=== PATIENT | female | born 1945 | race Caucasian/White ===

== ENCOUNTER 2017-12-29 11:11 | Inpatient (IN) | payer MEDICARE, BC ==
[~2017-12-29] VITALS: Ht 170.2 cm; Wt 83.0 kg
[2017-12-29 12:03] LABS: BASOPHILS ABSOLUTE AUTO 0.02 K/mm3 (0.00-0.23); BASOPHILS PERCENT AUTO 0 % (0-2); EOSINOPHILS ABSOLUTE AUTO 0.03 K/mm3 (0.00-0.68); EOSINOPHILS PERCENT AUTO 0 % (0-6); Hematocrit 39.8 % (33.0-51.0); Hemoglobin 13.4 g/dL (11.5-16.0); IMMATURE GRAN PERCENT AUTO 1 % (0-1); LYMPHOCYTES PERCENT AUTO 3 % (21-46); MONOCYTES ABSOLUTE AUTO 0.45 K/mm3 (0.16-1.47); MONOCYTES PERCENT AUTO 3 % (4-13); Mean Corpuscular HGB 30.9 pg (26.0-34.0); Mean Corpuscular HGB Conc 33.7 g/dL (31.5-36.5); Mean Corpuscular Volume 92 fL (80-100); Mean Platelet Volume 10.3 fL (9.1-12.4); NEUTROPHILS ABSOLUTE AUTO 17.16 K/mm3 (1.96-9.15); NEUTROPHILS PERCENT AUTO 94 % (41-73); Platelet Count 285 K/mm3 (150-400); RDW Coefficient Variation 11.9 % (11.7-14.2); RDW Standard Deviation 40.2 fL (35.1-46.3); Red Blood Cell Count 4.34 M/mm3 (3.80-5.20); White Blood Cell Count 18.26 K/mm3 (4.00-11.30)
[2017-12-29] MEDS ORDERED: LEVSOD100 PO (12:05)
[2017-12-29] MEDS ORDERED: POTCHL10ER PO (12:06)
[2017-12-29] MEDS ORDERED: MICROZIDE12.5 MG (12:06)
[2017-12-29] MEDS ORDERED: METO100ER PO (12:06)
[2017-12-29] MEDS ORDERED: ELIQUIS5 MG PO (12:07)
[2017-12-29 12:18] LABS: Anion Gap 11 mmol/L (6-16); Blood Urea Nitrogen 15 mg/dL (8-24); CO2, Blood 25 mmol/L (21-32); Calcium, Blood 9.2 mg/dL (8.5-10.1); Chloride, Blood 100 mmol/L (98-108); Creatinine, Blood 0.88 mg/dL (0.40-1.00); Glomerular Filtration Rate >60 (60-); Glucose, Blood 215 mg/dL (70-99); Potassium, Blood 3.7 mmol/L (3.5-5.5); Sodium, Blood 136 mmol/L (136-145)
[2017-12-30 04:58] LABS: Hematocrit 39.6 % (33.0-51.0); Mean Corpuscular HGB 31.1 pg (26.0-34.0); Mean Corpuscular HGB Conc 32.8 g/dL (31.5-36.5); Mean Platelet Volume 10.2 fL (9.1-12.4); Platelet Count 260 K/mm3 (150-400); RDW Coefficient Variation 11.9 % (11.7-14.2); RDW Standard Deviation 41.6 fL (35.1-46.3); Red Blood Cell Count 4.18 M/mm3 (3.80-5.20); White Blood Cell Count 16.49 K/mm3 (4.00-11.30)
[2017-12-30 05:01] LABS: Mean Corpuscular Volume 95 fL (80-100)
[2017-12-30 05:27] LABS: Anion Gap 9 mmol/L (6-16); Blood Urea Nitrogen 15 mg/dL (8-24); Bun/Creatinine Ratio 20.1 (12.0-20.0); CO2, Blood 28 mmol/L (21-32); Calcium, Blood 9.2 mg/dL (8.5-10.1); Chloride, Blood 100 mmol/L (98-108); Creatinine, Blood 0.75 mg/dL (0.40-1.00); Glomerular Filtration Rate >60 (60-); Glucose, Blood 208 mg/dL (70-99); Potassium, Blood 4.6 mmol/L (3.5-5.5); Sodium, Blood 137 mmol/L (136-145)
[2017-12-31 05:38] LABS: BASOPHILS ABSOLUTE AUTO 0.01 K/mm3 (0.00-0.23); BASOPHILS PERCENT AUTO 0 % (0-2); EOSINOPHILS ABSOLUTE AUTO 0.01 K/mm3 (0.00-0.68); EOSINOPHILS PERCENT AUTO 0 % (0-6); Hematocrit 36.8 % (33.0-51.0); IMMATURE GRAN ABSOLUTE AUTO 0.17 K/mm3 (0.00-0.10); IMMATURE GRAN PERCENT AUTO 1 % (0-1); LYMPHOCYTES ABSOLUTE AUTO 1.01 K/mm3 (0.84-5.20); LYMPHOCYTES PERCENT AUTO 6 % (21-46); MONOCYTES ABSOLUTE AUTO 0.55 K/mm3 (0.16-1.47); MONOCYTES PERCENT AUTO 3 % (4-13); Mean Corpuscular HGB 30.6 pg (26.0-34.0); Mean Corpuscular HGB Conc 32.6 g/dL (31.5-36.5); Mean Corpuscular Volume 94 fL (80-100); Mean Platelet Volume 10.6 fL (9.1-12.4); NEUTROPHILS ABSOLUTE AUTO 16.69 K/mm3 (1.96-9.15); NEUTROPHILS PERCENT AUTO 90 % (41-73); Platelet Count 269 K/mm3 (150-400); RDW Coefficient Variation 11.9 % (11.7-14.2); RDW Standard Deviation 41.1 fL (35.1-46.3); Red Blood Cell Count 3.92 M/mm3 (3.80-5.20); White Blood Cell Count 18.44 K/mm3 (4.00-11.30)
[2017-12-31] MEDS ORDERED: SACC250C (11:37)
[2017-12-31] MEDS ORDERED: Percocet 5-3251 EACH PO (11:37)
[2017-12-31] MEDS ORDERED: AMOCLA500 PO (11:38)
[2017-12-31] MEDS ORDERED: PRED10 PO (11:41)
== END 2017-12-31 12:54 | disposition home or self-care (01) | DRG 872 ==
LOC: ER 11:11 → MEDS 14:09
PROVIDERS: Emergency Medicine; Hospitalist
DX: A41.9 Sepsis, unspecified organism (principal); J36 Peritonsillar abscess; E03.9 Hypothyroidism, unspecified; I48.91 Unspecified atrial fibrillation; I10 Essential (primary) hypertension; L53.9 Erythematous condition, unspecified
CPT/HCPCS: 36415; 70491; 80048; 83605; 85025; 85027; 87040; 87070; 96365; 99285-25; J0295; J2930; J7050; J7120; Q9967

== ENCOUNTER 2023-01-01 09:39 | Inpatient (IN) | payer MEDICARE, BC ==
[~2023-01-01] VITALS: Ht 170.2 cm; Wt 81.1 kg
[~2023-01-01 09:39] MED LIST: AMOCLA500 PO; ELIQUIS5 MG PO; LEVSOD100 PO; METO100ER PO; MICROZIDE12.5 MG; POTCHL10ER PO; PRED10 PO; Percocet 5-3251 EACH PO; SACC250C
[2023-01-01] MEDS ORDERED: SERT25 PO ×2 (09:59→11:29)
[2023-01-01 10:11] LABS: BASOPHILS ABSOLUTE AUTO 0.04 K/mm3 (0.00-0.23); BASOPHILS PERCENT AUTO 1 % (0-2); EOSINOPHILS ABSOLUTE AUTO 0.15 K/mm3 (0.00-0.68); EOSINOPHILS PERCENT AUTO 2 % (0-6); Hematocrit 35.1 % (33.0-51.0); Hemoglobin 11.7 g/dL (11.5-16.0); IMMATURE GRAN ABSOLUTE AUTO 0.05 K/mm3 (0.00-0.10); IMMATURE GRAN PERCENT AUTO 1 % (0-1); LYMPHOCYTES ABSOLUTE AUTO 1.16 K/mm3 (0.84-5.20); LYMPHOCYTES PERCENT AUTO 14 % (21-46); MONOCYTES ABSOLUTE AUTO 0.38 K/mm3 (0.16-1.47); MONOCYTES PERCENT AUTO 5 % (4-13); Mean Corpuscular HGB 30.4 pg (26.0-34.0); Mean Corpuscular HGB Conc 33.3 g/dL (31.5-36.5); Mean Corpuscular Volume 91 fL (80-100); Mean Platelet Volume 9.6 fL (9.1-12.4); NEUTROPHILS ABSOLUTE AUTO 6.29 K/mm3 (1.96-9.15); NEUTROPHILS PERCENT AUTO 78 % (41-73); Platelet Count 279 K/mm3 (150-400); RDW Coefficient Variation 12.2 % (11.7-14.2); RDW Standard Deviation 40.9 fL (35.1-46.3); Red Blood Cell Count 3.85 M/mm3 (3.80-5.20); White Blood Cell Count 8.07 K/mm3 (4.00-11.30)
[2023-01-01 10:39] LABS: Albumin, Blood 3.5 g/dL (3.4-5.0); Albumin/Globulin Ratio 0.9 (0.8-1.8); Bilirubin, Total 0.5 mg/dL (0.1-1.0); Bun/Creatinine Ratio 19.7 (12.0-20.0); Calcium, Blood 9.2 mg/dL (8.5-10.1); Creatinine, Blood 0.86 mg/dL (0.40-1.00); Globulin, Blood 3.9 g/dL (2.2-4.0); Potassium, Blood 3.7 mmol/L (3.5-5.5); Total Protein, Blood 7.4 g/dL (6.4-8.2)
[2023-01-01 14:26] VITALS: BP 165/84
--- NOTE | 2023-01-01 15:21 | NUR ---
LATE ENTRY/ER ADMIT 1415: RECEIVED REPORT FROM SHAQ CHAHAL. 1425: RECEIVED PT FROM ER VIA GURNEY TRANSFER, PLACED IN BED, MADE COMFORTABLE, ORIENTED TO ROOM & UNIT ROUTINE. PT IS A&O X 4, HAS R SIDE FACIAL DROOP, SPEECH SLURRED, R ARM FLACCID, R LEG WEAK. IS TO HAVE AN MRI OF HEAD AT 1500.
[2023-01-01 15:44] VITALS: BP 163/92
[2023-01-01 15:45] VITALS: BP 163/92
[2023-01-01 15:47] VITALS: BP 163/92
[2023-01-01 19:28] VITALS: BP 149/88
--- NOTE | 2023-01-01 19:39 | NUR ---
SHIFT SUMMARY FACIAL DROOP IS GONE, SMILE SYMMETRICAL, SPEECH REMAINS SLURRED THOUGH LESS SO, R ARM REMAINS FLACCID, R LEG WEAK THOUGH PT IS ABLE TO MOVE IT AND CAN STAND TO PIVOT FOR BSC/RESTROOM USE. ST SAW PT AND PT CLEARED FOR SWALLOW. MEDICATED ONCE FOR C/O OF NAUSEA WITH GOOD RELIEF STATED BY PT. WAS ABLE TO EAT DINNER. PT'S FRIEND BROUGHT IN PT'S PERSONAL CPAP MACHINE. PT & OT WILL SEE PT TOMORROW.
[2023-01-02 04:25] VITALS: BP 129/86
--- NOTE | 2023-01-02 04:36 | NUR ---
SHIFT SUMMARY. SHIFT HAS BEEN MOSTLY UNREMARKABLE. PT AOX4, PLEASANT, COOPERATIVE WITH CARE. CALLS APPROPRIATELY AND IS ABLE TO MAKE NEEDS KNOWN. NEURO CHECKS COMPLETED Q4 PER ORDER. NO CHANGES IN NEURO FUNCTION NOTED THIS SHIFT THUS FAR. PT WAS SPORADICALLY DESATURATING WHILE WEARING CPAP EARLY IN SHIFT. NOTIFIED RT WHO INSTITUTED O2 BLEED IN AND PT HAS BEEN SATURATING >95% SINCE. RT RECOMMENDED OUTPATIENT TITRATION STUDY. NO PAIN REPORTED THIS SHIFT. BED LOCKED IN LOWEST POSITION. CALL LIGHT LEFT WITHIN REACH.
[2023-01-02 05:40] LABS: Hematocrit 33.6 % (33.0-51.0); Hemoglobin 11.4 g/dL (11.5-16.0); Mean Corpuscular HGB 30.6 pg (26.0-34.0); Mean Corpuscular HGB Conc 33.9 g/dL (31.5-36.5); Mean Corpuscular Volume 90 fL (80-100); Mean Platelet Volume 9.4 fL (9.1-12.4); Platelet Count 267 K/mm3 (150-400); RDW Coefficient Variation 12.3 % (11.7-14.2); RDW Standard Deviation 40.5 fL (35.1-46.3); Red Blood Cell Count 3.73 M/mm3 (3.80-5.20); White Blood Cell Count 7.75 K/mm3 (4.00-11.30)
[2023-01-02 06:19] LABS: Bun/Creatinine Ratio 14.7 (12.0-20.0); Calcium, Blood 9.5 mg/dL (8.5-10.1); Creatinine, Blood 0.95 mg/dL (0.40-1.00); Potassium, Blood 3.8 mmol/L (3.5-5.5)
[2023-01-02 07:34] VITALS: BP 136/75
--- NOTE | 2023-01-02 10:22 | NUR ---
FILIERO CHECKS PT'S NUERO ASSESSMENT REMAINS UNCHANGES THOUGH SHE IS BEGINNING TO MAKE PROGRESS. PARTICIPATED WITH OT TODAY. SHOWERED W/MIN ASSIST THIS MORNING.
[2023-01-02 15:16] VITALS: BP 128/77
--- NOTE | 2023-01-02 17:45 | NUR ---
"Spiritual Care | Pt. Request Pt. is sitting up in a chair when she welcomes my visit. Pt. is pleasant but unsettled about longer implications from her stroke. Listen with empathy and a calming presence. Consider matters of kandace and belief. Pt. displays evidence of total engagement and awareness. Prayed with Pt. Pt. verbalized gratitude for the spiritual care visit and welcomed this senior test engineer to return."
--- NOTE | 2023-01-02 18:25 | NUR ---
SHIFT SUMMARY A&O X 4, VSS. PLEASANT & COOPERATIVE WITH ALL CARE. NEURO CHECKS DONE Q 4. SOME IMPROVEMENT NOTED. PT IS AGREEABLE TO REHAB UPON DC. PARTICIPATED WITH OT & PT TODAY. HAS BEEN SITTING UP IN CHAIR FOR ALL MEALS. SEEMS QUITE MOTIVATED TO WORK AT [employer]. CALL LIGHT WITHIN REACH, BED IN LOW POSITION. PLAN IS LIKELY TO REHAB UPON DC.
[2023-01-02 20:17] VITALS: BP 149/83
[2023-01-03 03:39] VITALS: BP 138/72
--- NOTE | 2023-01-03 05:24 | NUR ---
NOC SHIFT SUMMARY: UP WITH SBA TO THE BATHROOM. NO C/O PAIN. SLEPT WELL OVERNIGHT. DISCHARGE TO REHAB FOR STRENTHENING.
[2023-01-03 07:36] VITALS: BP 149/89
[2023-01-03 16:11] VITALS: BP 140/71
--- NOTE | 2023-01-03 18:07 | NUR ---
SHIFT SUMMARY PATIENT UP WITH STAND BY ASSIST. PATIENT ABLE TO AMBULATE INDEPENDENTLY. PATIENT CONTINUES TO HAVE SLIGHT WEAKNESS OF R LEG AND FLACID R ARM. SPEECH SLURRED WHEN PATIENT IS TIRED. PATIENT NOTED TO HAVE NEGLECT OF THE ARM AND ADMITS THAT SHE ROLED OVER AND SLEPT ON HER ARM LAST NIGHT. PATIENT HAVING SOME SORENESS IN THE WRIST. MEDICATED WITH TYLENOL WITH GOOD RELIEF. CT OF ABDOMIN AND PELVIS DONE. PLAN FOR PATIENT TO GO TO REHAB TOMORROW. PATIENT LIVES ALONE IN A 5TH WHEEL IN A PARK. EDUCATION PROVIDED RELATED TO THE IMPORTANCE OF EXERCISING HER R SIDE AND TALK.
[2023-01-03 19:41] VITALS: BP 146/77
[2023-01-04 04:41] VITALS: BP 129/79
--- NOTE | 2023-01-04 06:17 | NUR ---
SHIFT SUMMARY NOC PT A/O X 4. PLEASANT AND COOPERATIVE WITH CARE. NO ACUTE CHANGES TO REPORT. 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 RLE STRENGTH AND ROM IS ALMOST EQUAL TO LLE. PT HAS BEEN ABLE TO AMBULATE WITH FWW AND SBA TO BATHROOM. PT HAD C/O OF PAIN IN R ARM AND MEDICATED PER EMAR. PT ON TELE RUNNING AFIB IN 70'S. PT EXPECTED TO DISCHARGE TO [facility] FOR REHAB TODAY. PT IS CURRENTLY RESTING WITH BED IN LOWEST POSITION, AND CALL LIGHT WITHIN REACH.
[2023-01-04 07:57] VITALS: BP 149/88
[2023-01-04 13:38] LABS: SARS-Cov-2 (COVID-19) PCR, MMC NEGATIVE (NEGATIVE)
[2023-01-04 15:20] VITALS: BP 153/89
[2023-01-04] MEDS ORDERED: XARELTO20 MG PO (18:43)
[2023-01-04] MEDS ORDERED: ASPI81CH PO (18:44)
[2023-01-04] MEDS ORDERED: ONDA4ODT MM (18:45)
[2023-01-04] MEDS ORDERED: LORA.5 PO (18:45)
--- NOTE | 2023-01-04 19:02 | NUR ---
SHIFT SUMMARY AND DISCHARGE PATIENT DISCHARGED TO [facility]. PATIENT ALERT AND INTERACTIVE. PATIENT CONTINUES TO HAVE R SIDED WEAKNESS AND NEGLECT OF R ARM. PATIENT ABLE TO INDEPENDENTLY AMBULATE AROUND ROOM. PATIENT TEARFUL THIS MORNING WORRYING ABOUT IF SHE WILL BE ABLE TO RETURN HOME AND TAKE CARE OF SELF. PROVIDED ACTIVE LISTENING AND SUPPORT. REASSURED PATIENT THAT SHE WILL CONTINUE TO GET SOME USE OF R ARM BACK OVER TIME IF SHE CONTINUES TO DO THE EXERCISES LEFT BY THERAPY. PATIENT LESS TEARFUL AFTER DISCUSSION. IV DC'D BEFORE TRANSFER. BELONGINGS AND TRANSFER PACKET SENT WITH PATIENT. PATIENT'S PERSONAL CPAP SENT WITH HER. DISCHARGE PLAN TO REHAB THEN HOME REVIEWED WITH PATIENT
== END 2023-01-04 19:09 | DRG 65 ==
LOC: ER 09:39 → MEDS 11:48
PROVIDERS: Hospitalist; Student in an Organized Health Care Education/Training Program; ADMIT Internal Medicine
PROC: 5A09357 Assistance with Respiratory Ventilation, Less than 24 Consecutive Hours, Continuous Positive Airway Pressure (ICD-10-PCS; principal; 2023-01-01)
PROC: B24BZZZ Ultrasonography of Heart with Aorta (ICD-10-PCS; 2023-01-01)
DX: I63.422 Cerebral infarction due to embolism of left anterior cerebral artery (principal); C79.51 Secondary malignant neoplasm of bone; G81.91 Hemiplegia, unspecified affecting right dominant side; I48.21 Permanent atrial fibrillation; I63.412 Cerebral infarction due to embolism of left middle cerebral artery; R29.810 Facial weakness; R47.81 Slurred speech; C80.1 Malignant (primary) neoplasm, unspecified; G47.33 Obstructive sleep apnea (adult) (pediatric); I10 Essential (primary) hypertension; M17.0 Bilateral primary osteoarthritis of knee; E03.9 Hypothyroidism, unspecified; R47.1 Dysarthria and anarthria; R29.709 NIHSS score 9; E11.9 Type 2 diabetes mellitus without complications; Z88.8 Allergy status to other drugs, medicaments and biological substances; Z88.5 Allergy status to narcotic agent; Z79.890 Hormone replacement therapy; Z79.52 Long term (current) use of systemic steroids; Z79.01 Long term (current) use of anticoagulants; Z11.52 Encounter for screening for COVID-19
CPT/HCPCS: 36415; 70450; 70496; 70498; 70551; 71045; 71260; 74177; 80048; 80053; 82947; 85025; 85027; 92526; 92610; 93005; 93010; 93308; 93321; 94660; 94762; 97110; 97112; 97161; 97165; 97530; 99285-25; A9270; J2405; Q9967; U0002

== ENCOUNTER → 2023-06-27 | Outpatient (CLI) | payer MEDICARE, BC | END | disposition home or self-care (01) | LOC: LAB 15:40 → LAB SHORT 15:40 | DX: R23.3 Spontaneous ecchymoses (principal) ==

== ENCOUNTER 2023-06-28 10:53 | Emergency (ER) | payer MEDICARE, BC ==
[~2023-06-28] VITALS: Ht 170.2 cm; Wt 68.0 kg
[~2023-06-28 10:53] MED LIST changes: +ASPI81CH PO; +LORA.5 PO; +ONDA4ODT MM; +SERT25 PO; +XARELTO20 MG PO
[2023-06-28] MEDS ORDERED: Amoxicillin875 MG PO (14:04)
[2023-06-28] MEDS ORDERED: Tessalon200 MG PO (14:05)
[2023-06-28] MEDS ORDERED: ANASTROZOLE1 M7 PO (14:06)
[2023-06-28] MEDS ORDERED: KISQALI1 EAC4 PO (14:07)
[2023-06-28] MEDS ORDERED: DOXY100 PO (15:10)
[2023-06-28] MEDS ORDERED: PRED20 PO (15:10)
[2023-06-28 15:25] VITALS: BP 142/87
== END 2023-06-28 15:27 | disposition home or self-care (01) ==
LOC: ER 10:53
DX: J20.9 Acute bronchitis, unspecified (principal); Z88.0 Allergy status to penicillin; I10 Essential (primary) hypertension; G47.33 Obstructive sleep apnea (adult) (pediatric); E03.9 Hypothyroidism, unspecified; I48.91 Unspecified atrial fibrillation; Z79.899 Other long term (current) drug therapy; Z79.82 Long term (current) use of aspirin; Z79.01 Long term (current) use of anticoagulants; Z88.8 Allergy status to other drugs, medicaments and biological substances; Z88.5 Allergy status to narcotic agent
CPT/HCPCS: 83880; 84484; 93005; 93010; 99283-25

== ENCOUNTER → 2024-03-09 | Outpatient (CLI) | payer MEDICARE, BC ==
[~2024-03-09] MED LIST changes: +ANASTROZOLE1 M7 PO; +Amoxicillin875 MG PO; +DOXY100 PO; +KISQALI1 EAC4 PO; +PRED20 PO; +Tessalon200 MG PO
== END ==
LOC: LAB 16:58 → LAB SHORT 16:58
DX: N39.0 Urinary tract infection, site not specified (principal)
CPT/HCPCS: 87086

== ENCOUNTER → 2025-01-12 | Outpatient (CLI) | payer MEDICARE, BC | LOC: LAB 11:08 → LAB SHORT 11:08 | DX: N39.0 Urinary tract infection, site not specified (principal) | CPT/HCPCS: 87086 ==